=== PATIENT | male | born 1930 | race Caucasian/White ===

== ENCOUNTER 2017-03-26 19:43 | Emergency (ER) | payer MEDICARE, OTHER ==
[~2017-03-26] VITALS: Ht 172.7 cm; Wt 89.0 kg
[~2017-03-26 19:43] MED LIST: OMEP20CA5 PO; TAB-TAB PO
[2017-03-26 19:50] VITALS: BP 138/65; PULSE 86; RESP 20; O2SAT 96
--- NOTE | 2017-03-26 20:39 | PD ---
HPI Chief Complaint: Fall Time Seen by Provider: 19:59 Travel History International Travel<30 days: No Contact w/Intl Traveler<30days: No Traveled to known affect area: No History of Present Illness HPI 86-year-old otherwise healthy male presents to the emergency room for evaluation of right elbow pain and facial laceration after a mechanical trip and fall just prior to arrival. Patient states he was reaching down for his keys when he stumbled forward. He tried to catch his balance by breaking into a run but was unable to. He does not know exactly how he landed but reports immediate right elbow pain. Denies loss of consciousness. He denies significant headache, neck pain, back pain, hip pain, or other extremity pain. Denies paresthesias. Patient only takes vitamin D. He believes he has had a tetanus vaccination within one year. PFSH Past Medical History Cancer: Yes (melanoma) Cardiovascular Problems: No Diabetes: No Diminished Hearing: No Endocrine: No Gastrointestinal Disorders: Yes GERD: Yes (GERD) Hepatitis: No Hiatal Hernia: No Hypertension: No Inguinal Hernia: Yes (REPAIR) Kidney Stones: Yes Medical other: Yes (reflux hx of kidney stones arthritis) Musculoskeletal: No Neurologic: No Psychiatric: No Respiratory: Yes (asthma) Immunizations Current: No Thyroid Disease: No Tetanus Vaccination: Unknown Past Surgical History Abdominal Surgery: Yes ( hernia repair LEFT&RIGHT ,lymph node from right axillary) Cardiac Surgery: No Ear Surgery: Yes (right ear mastoid surgery) Endocrine Surgery: No Eye Surgery: Yes (CATARACTS) Genitourinary Surgery: No Gynecologic Surgery: No Oral Surgery: No Pacemaker: No Thoracic Surgery: No Other Surgery: Yes Social History Alcohol Use: Yes (OCCASIONAL) Tobacco Use: No Substance Use: No Allergies-Medications (Allergen,Severity, Reaction): Coded Allergies: penicillin G (Unverified Allergy, Intermediate, RASH, ITCHING, 10/07/16) Reported Meds & Prescriptions Reported Meds & Active Scripts Active Tylenol-Codeine #3 (Acetaminophen-Codeine) 300-30 mg Tab 1-2 Tab PO Q6H PRN Reported Multivitamin (Multivitamins) 1 Tab Tab 1 Tab PO DAILY Prilosec 20 mg (Omeprazole) 20 Mg Capcr 20 Mg PO DAILYPRN Review of Systems Except as stated in HPI: all other systems reviewed are Neg Physical Exam Narrative GENERAL: Well-nourished, well-developed male in no acute distress. Afebrile. SKIN: Focused skin assessment warm/dry. There is a 1.5 cm deep laceration above the right eyebrow. Moderate bleeding. He has superficial abrasions on the nose and chin. HEAD: Normocephalic. EYES: No scleral icterus. No injection or drainage. NECK: Supple, trachea midline. No JVD or lymphadenopathy. CARDIOVASCULAR: Regular rate and rhythm without murmurs, gallops, or rubs. RESPIRATORY: Breath sounds equal bilaterally. No accessory muscle use. MUSCULOSKELETAL: No cyanosis. Moderate edema of the right elbow. 2+ radial pulse. Full range of motion of the elbow secondary to pain. Data Data Last Documented VS Vital Signs Date Time Temp Pulse Resp B/P (MAP) Pulse Ox O2 Delivery O2 Flow Rate FiO2 03/26/17 19:50 86 20 138/65 (89) [address] Brain W/O Iv Contrast(Rout) (03/26/17 ) Ct Cerv Spine W/O Contrast (03/26/17 ) Ct Facial Bones W/O Iv Cont (03/26/17 ) Humerus (Min 2vws) (03/26/17 ) Elbow, Limited (Ap&Lat) (03/26/17 ) Splint Or Brace Apply/Monitor (03/26/17 21:40) Support Splint (03/26/17 21:48) Ed Discharge Order (03/26/17 21:52) Lidocaine 1% Inj (50 Ml) (Xylocaine 1% I (03/26/17 22:00) MDM Medical Decision Making Medical Screen Exam Complete: Yes Emergency Medical Condition: Yes Medical Record Reviewed: Yes Differential Diagnosis supracondylar fracture, strain, sprain, contusion, laceration, head injury Narrative Course 86-year-old male presents to the emergency room for evaluation of right elbow pain and facial pain after a mechanical fall just prior to arrival. Patient states he tripped and fell forward striking his face and the concrete. There was no loss of consciousness. He was trying to get up on his own but unable to. Patient only reports pain in his right elbow. Denies significant headache , neck pain, back pain, other extremity pain, or hip pain. Denies any numbness or tingling. Physical exam reveals a 2 cm laceration above the right eyebrow that is well approximated. There is surrounding periorbital ecchymosis and edema. Laceration was repaired, see procedure note for details. No focal neurological deficits. No midline tenderness of the cervical spine. Right elbow is tender to palpation especially on the medial aspect. Limited range of motion secondary to pain. There is moderate edema. It is neurovascularly intact with 2+ radial pulse. CT of the brain and neck are unremarkable. CT of the face shows nasal bone fractures. X-ray of the right elbow shows a nondisplaced supracondylar fracture of the humerus. No evidence of compartment syndrome. Patient placed in posterior long-arm splint. He will be discharged with prescription for Tylenol 3 given minimal pain after splinting and age. Told to follow up with his primary care physician for outpatient referral to orthopedist. Told to return forcing symptoms. He understands and agrees to plan. Procedures Procedure Narrative LACERATION LOCATION: Above the right eyebrow LENGTH: 2 cm NUMBER OF STITCHES/ILIANA: 4 simple interrupted REPAIR: The area of the laceration was prepped with Betadine and sterilely draped. The laceration was infiltrated with 1% lidocaine. The wound was copiously irrigated and explored without evidence of foreign body, tendon injury or neurovascular injury. The wound was closed using 5-0 Prolene. This was a single layer repair. A sterile dressing was applied. The patient was advised to keep the dressing clean and dry. Patient tolerated the procedure well. Diagnosis Primary Impression: Supracondylar fracture of humerus Qualified Codes: S42.411A - Displaced simple supracondylar fracture without intercondylar fracture of right humerus, initial encounter for closed fracture Additional Impressions: Facial laceration Qualified Codes: S01.81XA - Laceration without foreign body of other part of head, initial encounter Nasal bone fracture Qualified Codes: S02.2XXA - Fracture of nasal bones, initial encounter for closed fracture Referrals: Primary Care Physician Additional Instructions: Keep wound clean and dry. Apply triple antibiotic ointment daily. Stitches out in 5-7 days. Tylenol #3 as directed, as needed for pain. Follow-up with a primary care physician. Return for worsening symptoms. Med/Other Pt SpecificInfo: Prescription(s) given Scripts Acetaminophen-Codeine (Tylenol-Codeine #3) 300-30 mg Tab 1-2 TAB PO Q6H Y for PAIN, #15 TAB 0 Refills Prov: Arian Anderson MD 03/26/17 Disposition: 01 DISCHARGE HOME Condition: Stable Aleksandra Sagastume Mar 26, 2017 20:39
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
[2017-03-26] MEDS ORDERED: TYLETAB34 PO (21:48)
[2017-03-26] MEDS ORDERED: LIDOCAINE HCL 1% 50 ML VIAL INFIL ONE (22:00)
== END 2017-03-27 01:14 | disposition home or self-care (01) ==
LOC: NEPE 19:43
DX: S02.2XXA Fracture of nasal bones, initial encounter for closed fracture (principal); S42.411A Displaced simple supracondylar fracture without intercondylar fracture of right humerus, initial encounter for closed fracture; S42.414A Nondisplaced simple supracondylar fracture without intercondylar fracture of right humerus, initial encounter for closed fracture; S01.111A Laceration without foreign body of right eyelid and periocular area, initial encounter; K21.9 Gastro-esophageal reflux disease without esophagitis; J45.909 Unspecified asthma, uncomplicated; W01.0XXA Fall on same level from slipping, tripping and stumbling without subsequent striking against object, initial encounter; Z87.442 Personal history of urinary calculi; Z79.899 Other long term (current) drug therapy
CPT/HCPCS: 12011; 29105; 70450; 70486; 72125; 73060; 73070